=== PATIENT | female | born 1975 | race Two or more races ===

== ENCOUNTER 2019-03-09 13:39 | Outpatient (CLI) | payer MEDICAID ==
[~2019-03-09] VITALS: Ht 167.6 cm; Wt 54.9 kg
[2019-03-09 13:45] VITALS: BP 100/65
--- NOTE | 2019-03-10 01:15 | Consultation ---
DATE OF CONSULTATION: 03/09/2019 GASTROENTEROLOGY CONSULTATION CHIEF COMPLAINT: Ulcerative colitis. HISTORY OF PRESENT ILLNESS: This is a very pleasant 43-year-old female with diagnosis of ulcerative colitis, mostly in the rectum, was treated with Canasa in the past, recently was diagnosed with Giardia and Campylobacter infection, just finished the treatment. She is still having symptoms, does not have solid stool. Denies any significant bleeding, but still having loose stools. PAST MEDICAL HISTORY: 1. Hemorrhoids. 2. History of ulcerative colitis. 3. History of Giardia and Campylobacter infection. PAST SURGICAL HISTORY: Varicose vein and . MEDICATIONS: Mesalamine, but she is off of it right now. FAMILY HISTORY: Father had skin cancer. SOCIAL HISTORY: The patient drinks socially and also smokes. Denies any IV drug abuse. ALLERGIES: No known drug allergy. REVIEW OF SYSTEMS: A 10-point review of systems was performed and pertinent positives in HPI. PHYSICAL EXAMINATION: VITAL SIGNS: Temperature 97.6, blood pressure 100/65, pulse 68, respirations 20. HEENT: Normocephalic and atraumatic. Sclerae anicteric. NECK: Supple. No evidence of obvious lymphadenopathy. CARDIOVASCULAR: Regular rate and rhythm. Plus S1 and S2. No obvious murmur. LUNGS: Clear to auscultation bilaterally. ABDOMEN: Positive bowel sounds. Soft and nontender. No rebound. No guarding. No peritoneal sign. EXTREMITIES: No cyanosis. No clubbing. No edema. ASSESSMENT AND PLAN: This is a 43-year-old female with history of ulcerative colitis with recent Giardia and Campylobacter infection. Plan to obtain authorization for colonoscopy to see if she has active ulcerative colitis flare versus still infection. The patient agreed to it. We will obtain authorization. The patient was given instruction for colonoscopy and again we will go ahead and schedule her when authorization is approved. Hebert Aguilar M.D. DR: Julianna JOB#: [id number] CC:
[2019-03-13] MEDS ORDERED: NO MEDICATION (07:58)
== END 2019-03-09 15:23 | disposition home or self-care (01) ==
LOC: PAN 13:39
DX: K51.90 Ulcerative colitis, unspecified, without complications (principal); Z80.8 Family history of malignant neoplasm of other organs or systems; F17.200 Nicotine dependence, unspecified, uncomplicated
CPT/HCPCS: 99202